=== PATIENT | female | born 2000 | race American Indian/Alaskan Native ===

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

== ENCOUNTER 2018-06-13 10:58 | Emergency (ER) | payer OTHER ==
--- NOTE | 2018-06-13 12:35 | ED PDOC ---
HPI: Fever Time Seen by Provider: 06/13/18 12:05 Past Medical History Reviewed: Historical Data, Nursing Documentation, Vital Signs Vital Signs: Last Vital Signs Temp 98.7 F 06/13/18 11:12 Pulse 114 H 06/13/18 11:12 Resp 20 06/13/18 11:12 BP 138/82 06/13/18 11:12 Pulse Ox 98 06/13/18 11:12 - Medical History PMH: Asthma Other PMH: Polycystic kidney disease; atrophic left kidney disease - Surgical History Surgical History: Tonsillectomy - Home Medications Home Medications: Ambulatory Orders Medication Instructions Recorded Levofloxacin [Levaquin] 750 mg PO DAILY 06/13/18 Phentermine HCl [Adipex-P] 37.5 mg PO DAILY 06/13/18 - Allergies Allergies/Adverse Reactions: Allergies Allergy/AdvReac Type Severity Reaction Status Date / Time No Known Allergies Allergy Verified 12/17/17 22:23 Review of Systems ROS Statement: Except As Marked, All Systems Reviewed And Found Negative ENT: Positive for: Throat Pain Musculoskeletal: Positive for: Other (flank pain) Physical Exam - Reviewed Nursing Documentation Reviewed: Yes Vital Signs Reviewed: Yes - Physical Exam Appears: Positive for: Non-toxic, No Acute Distress Head Exam: Positive for: ATRAUMATIC, NORMOCEPHALIC Skin: Positive for: Normal Color ENT: Positive for: TM Is/Are (non bulging; non erythematous ). Negative for: Tonsillar Exudate, Tonsillar Swelling Neck: Positive for: Normal, Painless ROM Cardiovascular/Chest: Positive for: Regular Rate, Rhythm. Negative for: Murmur Respiratory: Negative for: Respiratory Distress Gastrointestinal/Abdominal: Positive for: Normal Exam, Soft Back: Positive for: R CVA Tenderness. Negative for: Normal Inspection (tenderness to palpation to right flank) Lymphatic: Positive for: Normal Exam Neurologic/Psych: Positive for: Alert, Oriented - ECG O2 Sat by Pulse Oximetry: 98 (RA) Pulse Ox Interpretation: Normal Medical Decision Making Medical Decision Making: Time: 12:19 Plan: --CMP --urine --CBC with differential --Chest x-ray --Blood culture --urine culture --Urinalysis --Rapid strep --Monospot Scribe Attestation: Documented by Kentrell Riley, acting as a scribe for Priyanka Lane PA-C. Provider Scribe Attestation: All medical record entries made by the Scribe were at my direction and personally dictated by me. I have reviewed the chart and agree that the record accurately reflects my personal performance of the history, physical exam, medical decision making, and the department course for this patient. I have also personally directed, reviewed, and agree with the discharge instructions and disposition. Disposition - Disposition
--- NOTE | 2018-06-13 12:42 | ED PDOC ---
HPI: Influenza Time Seen by Provider: 06/13/18 12:05 Chief Complaint: Fever Chief Complaint (Provider): Fever History Per: Patient Exam Limitations: no limitations Symptoms include: fever, sore throat, cough. denies: vomiting, diarrhea Additional complaint(s):: Brittany Norman is a 18 year old female with a past medical history of polycystic kidney disease, atrophic left kidney disease, and asthma, who presents to the emergency department with persistent flank pain, fevers, and throat pain. Bin rubio states that x2 weeks ago she began having sore throat and right flank pain. She reports she was on vacation in [place] and went to the ED where she was diagnosed with a kidney infection and sore throat. Patient was given IV antibiotics and sent home with a Rx for Keflex, which she completed x3 days ago. Patient again states she has persistent throat pain, malaise, and right flank pain, prompting her to visit [facility] x2 days ago, where she was admitted. She was given IV Levaquin and discharged with Rx for Levaquin 750mg PO daily for x5days. Patient states she has not filled the Rx last night and after she was discharged last night she woke up drenched in sweat and a fever of 102. She reports she took Tylenol at 9am today and decided to come in to ED for persistent symptoms. Patient admits to have continued dysuria, intermittent cough with blood tinged sputum that improved over last couple of days. She denies to have any ear pain, nausea, vomiting, or diarrhea. PMD: no provider Past Medical History Reviewed: Historical Data, Nursing Documentation, Vital Signs Vital Signs: Last Vital Signs Temp 98.7 F 06/13/18 11:12 Pulse 114 H 06/13/18 11:12 Resp 20 06/13/18 11:12 BP 138/82 06/13/18 11:12 Pulse Ox 98 06/13/18 12:39 - Medical History PMH: Asthma Other PMH: Polycystic kidney disease; atrophic left kidney disease - Surgical History Surgical History: Tonsillectomy - Family History Family History: States: Unknown Family Hx - Home Medications Home Medications: Ambulatory Orders Medication Instructions Recorded Levofloxacin [Levaquin] 750 mg PO DAILY 06/13/18 Phentermine HCl [Adipex-P] 37.5 mg PO DAILY 06/13/18 - Allergies Allergies/Adverse Reactions: Allergies Allergy/AdvReac Type Severity Reaction Status Date / Time No Known Allergies Allergy Verified 12/17/17 22:23 Review of Systems ROS Statement: Except As Marked, All Systems Reviewed And Found Negative Constitutional: Positive for: Fever ENT: Positive for: Throat Pain. Negative for: Ear Pain Respiratory: Positive for: Cough, Sputum (mildly blooy ) Gastrointestinal: Negative for: Nausea, Vomiting, Abdominal Pain, Diarrhea Musculoskeletal: Positive for: Other (flank pain) Physical Exam - Reviewed Nursing Documentation Reviewed: Yes Vital Signs Reviewed: Yes - Physical Exam Appears: Positive for: Non-toxic, No Acute Distress Head Exam: Positive for: ATRAUMATIC, NORMOCEPHALIC Skin: Positive for: Normal Color ENT: Positive for: TM Is/Are (non bulging; non erythematous ), Pharyngeal Erythema. Negative for: Tonsillar Exudate, Tonsillar Swelling Neck: Positive for: Normal, Painless ROM, Supple Cardiovascular/Chest: Positive for: Regular Rate, Rhythm. Negative for: Murmur Respiratory: Positive for: Normal Breath Sounds. Negative for: Respiratory Distress Gastrointestinal/Abdominal: Positive for: Normal Exam, Soft. Negative for: Tenderness Back: Positive for: L CVA Tenderness, R CVA Tenderness. Negative for: Normal Inspection (tenderness to palpation of right flank) Lymphatic: Positive for: Normal Exam Neurologic/Psych: Positive for: Alert, Oriented Medical Decision Making Medical Decision Making: Time: 12:19 Plan: --CMP --Urine --CBC with differential --Chest x-ray --Blood culture --Urine culture --Urinalysis --Monospot --Rapid strep --CT of abd/pelvis with IV contrast Time 1256 Chest x-ray FINDINGS: LINES AND TUBES: None. LUNG AND PLEURA: The lungs are well inflated and clear. No pleural effusion or pneumothorax. HEART AND MEDIASTINUM: The heart is not enlarged. No aortic atherosclerotic calcification present. The hilar and mediastinal contours are within normal limits. SKELETAL STRUCTURES: The bony structures are within normal limits for the patient's age. VISUALIZED UPPER ABDOMEN: Normal. OTHER FINDINGS: None. IMPRESSION: No active pulmonary disease. 1604 Abd/Pelvis CT FINDINGS: LOWER THORAX: Unremarkable. LIVER: Unremarkable. No gross lesion or ductal dilatation. GALLBLADDER AND BILE DUCTS: Unremarkable. PANCREAS: Unremarkable. No gross lesion or ductal dilatation. SPLEEN: Unremarkable. ADRENALS: Unremarkable. No mass. KIDNEYS AND URETERS: Unremarkable right kidney. Atrophic/hypoplastic left kidney. There are at least 4 small rounded fluid density masses in the left kidney the largest of which measures 1.7 cm in diameter. This is unchanged from 12/17/2017. No renal calculus. No hydronephrosis. VASCULATURE: Unremarkable. No aortic aneurysm. No aortic atherosclerotic calcification or mural plaque present. BOWEL: Unremarkable. No obstruction. No gross mural thickening. APPENDIX: Normal appendix. PERITONEUM: Unremarkable. No free fluid. No free air. LYMPH NODES: Unremarkable. No enlarged lymph nodes. BLADDER: Unremarkable. REPRODUCTIVE: Normal uterus BONES: No acute fracture. OTHER FINDINGS: None. IMPRESSION: No evidence of renal abscess. Atrophic/hypoplastic left kidney with 4 small fluid density masses, likely cysts. These are unchanged from 12/17/2017. Otherwise unremarkable examination. Re-evaluated prior to d/c: Pain improved after Toradol. Pt advised that pain is likely radicular nerve pain from lumbar fracture and unrelated to kidney stones. She should f/u with her primary care doctor or orthopedist for further evaluation. Scribe Attestation: Documented by Kentrell Riley, acting as a scribe for Priyanka Lane PA-C. Provider Scribe Attestation: All medical record entries made by the Scribe were at my direction and personally dictated by me. I have reviewed the chart and agree that the record accurately reflects my personal performance of the history, physical exam, medical decision making, and the department course for this patient. I have also personally directed, reviewed, and agree with the discharge instructions and disposition. - Laboratory Results Result Diagrams: 06/13/18 13:00 06/13/18 13:00 - ECG O2 Sat by Pulse Oximetry: 98 (RA) Pulse Ox Interpretation: Normal Disposition - Clinical Impression Clinical Impression: Viral pharyngitis, Pyelonephritis - Disposition Referrals: Jimmy Jain MD [Staff Provider] - Disposition Time: 18:09 Condition: STABLE Additional Instructions: Continue course of Levaquin as prescribed previously. If you continue to have recurrent fevers and flank pain after the next day or so, return to ER for further evaluation. Take Ibuprofen and Tylenol for fevers and throat pain. Drink lots of fluids. Return to ER if you are unable to drink fluids. Instructions: Viral Pharyngitis (DC), Kidney Infection (DC) Forms: [facility] ([place]) Print Language: DIVEHI
--- NOTE | 2018-06-13 13:00 | RAD ---
Date of service: 06/13/2018 HISTORY: Shortness of breath COMPARISON: No prior. TECHNIQUE: Chest PA and lateral FINDINGS: LINES AND TUBES: None. LUNG AND PLEURA: The lungs are well inflated and clear. No pleural effusion or pneumothorax. HEART AND MEDIASTINUM: The heart is not enlarged. No aortic atherosclerotic calcification present. The hilar and mediastinal contours are within normal limits. SKELETAL STRUCTURES: The bony structures are within normal limits for the patient's age. VISUALIZED UPPER ABDOMEN: Normal. OTHER FINDINGS: None. IMPRESSION: No active pulmonary disease.
[2018-06-13 13:09] LABS: SQUAMOUS EPITHIAL 36 /hpf (0-5); URINE AMORPHOUS SEDIMENT RARE /ul (<OCC); URINE BACTERIA MOD (<OCC); URINE BILIRUBIN NEGATIVE (NEGATIVE); URINE BLOOD LARGE (NEGATIVE); URINE CLARITY CLOUDY (Clear); URINE COLOR YELLOW (YELLOW); URINE GLUCOSE (UA) NEG (NEGATIVE); URINE LEUKOCYTE ESTERASE MOD Leu/uL (Negative); URINE PROTEIN 30 mg/dL (NEGATIVE); URINE UROBILINOGEN 0.2-1.0 mg/dL (0.2-1.0)
[2018-06-13 13:27] LABS: BASO # 0.1 K/uL (0.0-0.2); BASO % 0.7 % (0.0-2.0); EOS # 0.1 K/uL (0.0-0.7); EOS % 0.7 % (0.0-4.0); HEMOGLOBIN 13.2 g/dL (12.0-16.0); LYMPH # 1.7 K/uL (1.0-4.3); LYMPH % 17.7 % (20.0-40.0); MEAN CORPUSCULAR HEMOGLOBIN 27.4 pg (27.0-31.0); MEAN CORPUSCULAR HGB CONC 32.6 g/dL (33.0-37.0); MEAN PLATELET VOLUME 9.1 fl (7.2-11.7); MONO # 1.1 K/uL (0.0-0.8); MONO % 11.8 % (0.0-10.0); NEUT # 6.5 K/uL (1.8-7.0); NEUT % 69.1 % (50.0-75.0); NRBC % 0.1 % (0.0-0.0); RBC 4.82 Mil/uL (3.80-5.20); RED CELL DISTRIBUTION WIDTH 14.4 % (11.5-14.5); WHITE BLOOD COUNT 9.5 K/uL (4.8-10.8)
[2018-06-13 13:49] LABS: ALB/GLOB RATIO 0.9 (1.0-2.1); ALBUMIN 3.8 g/dL (3.5-5.0); ALT/SGPT 34 U/L (9-52); AST/SGOT 27 U/L (14-36); BLOOD UREA NITROGEN 9 mg/dl (7-17); CALCIUM 9.4 mg/dL (8.4-10.2); GFR NON-AFRICAN AMERICAN > 60
[2018-06-13 13:50] VITALS: RESP 18
[2018-06-13] MEDS ORDERED: Sodium Chloride 0.9% 50 ML IV ONE (14:42)
[2018-06-13] MEDS ORDERED: Iohexol 300 100 ML IJ ONE (14:42)
--- NOTE | 2018-06-13 16:12 | CT ---
Date of service: 06/13/2018 PROCEDURE: CT Abdomen and Pelvis with contrast HISTORY: R/o renal abscess COMPARISON: 12/17/2017 TECHNIQUE: Contrast dose: 99 cc Omnipaque 3 Scott Radiation dose: Total exam DLP = 1134.1 mGy-cm. This CT exam was performed using one or more of the following dose reduction techniques: Automated exposure control, adjustment of the mA and/or kV according to patient size, and/or use of iterative reconstruction technique. FINDINGS: LOWER THORAX: Unremarkable. LIVER: Unremarkable. No gross lesion or ductal dilatation. GALLBLADDER AND BILE DUCTS: Unremarkable. PANCREAS: Unremarkable. No gross lesion or ductal dilatation. SPLEEN: Unremarkable. ADRENALS: Unremarkable. No mass. KIDNEYS AND URETERS: Unremarkable right kidney. Atrophic/hypoplastic left kidney. There are at least 4 small rounded fluid density masses in the left kidney the largest of which measures 1.7 cm in diameter. This is unchanged from 12/17/2017. No renal calculus. No hydronephrosis. VASCULATURE: Unremarkable. No aortic aneurysm. No aortic atherosclerotic calcification or mural plaque present. BOWEL: Unremarkable. No obstruction. No gross mural thickening. APPENDIX: Normal appendix. PERITONEUM: Unremarkable. No free fluid. No free air. LYMPH NODES: Unremarkable. No enlarged lymph nodes. BLADDER: Unremarkable. REPRODUCTIVE: Normal uterus BONES: No acute fracture. OTHER FINDINGS: None. IMPRESSION: No evidence of renal abscess. Atrophic/hypoplastic left kidney with 4 small fluid density masses, likely cysts. These are unchanged from 12/17/2017. Otherwise unremarkable examination.
[2018-06-13 18:01] VITALS: TEMP 98.6
[2018-06-13 18:25] VITALS: BP 134/71; PULSE 91
[2018-06-14 00:57] VITALS: O2SAT 98
== END 2018-06-13 18:20 | disposition home or self-care (01) ==
LOC: H.ER 10:58
DX: J02.9 Acute pharyngitis, unspecified (principal); N12 Tubulo-interstitial nephritis, not specified as acute or chronic; Q60.3 Renal hypoplasia, unilateral; M54.10 Radiculopathy, site unspecified
CPT/HCPCS: 71046; 74177; 80053; 81003; 81025; 85025; 86308; 87040; 87070; 87086; 87430; 99284; Q9967

== ENCOUNTER 2018-06-16 14:38 | Emergency (ER) | payer OTHER ==
--- NOTE | 2018-06-16 15:39 | ED PDOC ---
HPI: General Adult Time Seen by Provider: 06/16/18 15:31 Chief Complaint (Nursing): Fever Chief Complaint (Provider): Right Flank Pain, Sore Throat History Per: Patient History/Exam Limitations: no limitations Onset/Duration Of Symptoms: Days (x2 weeks) Current Symptoms Are (Timing): Still Present Additional Complaint(s): 18 year old female with hx of polycystic kidney disease presents to the ED for evaluation of persistent right flank pain and sore throat for the past two weeks. Patient was seen for these sx recently in this ED and after CT/labs, was diagnosed with pyelonephritis and sent home with Levaquin. She presents with persistent pain and symptoms. PMD: none provided Past Medical History Reviewed: Historical Data, Nursing Documentation, Vital Signs Vital Signs: Last Vital Signs Temp 99.5 F 06/16/18 14:51 Pulse 118 H 06/16/18 14:51 Resp 20 06/16/18 14:51 BP 126/83 06/16/18 14:51 Pulse Ox 100 06/16/18 14:51 - Medical History PMH: Asthma, Sexually Transmitted Disease (gential herpes, as per patient) Other PMH: polycystic kidney disease - Surgical History Surgical History: Tonsillectomy Other surgeries: left wrist ganglion cyst removed - Family History Family History: States: Unknown Family Hx - Social History Current smoker - smoking cessation education provided: No Alcohol: None Drugs: Denies - Home Medications Home Medications: Ambulatory Orders Medication Instructions Recorded Levofloxacin [Levaquin] 750 mg PO DAILY 06/13/18 Phentermine HCl [Adipex-P] 37.5 mg PO DAILY 06/13/18 Levofloxacin [Levaquin] 500 mg PO DAILY #10 tablet 06/16/18 Pseudoephedrine [Sudafed Tab] 60 mg PO Q6 PRN #24 tab 06/16/18 - Allergies Allergies/Adverse Reactions: Allergies Allergy/AdvReac Type Severity Reaction Status Date / Time pineapple Allergy SWELLING Verified 06/16/18 14:49 Review of Systems ROS Statement: Except As Marked, All Systems Reviewed And Found Negative ENT: Positive for: Throat Pain Musculoskeletal: Positive for: Other (right flank pain) Physical Exam - Reviewed Nursing Documentation Reviewed: Yes Vital Signs Reviewed: Yes - Physical Exam Appears: Positive for: No Acute Distress Head Exam: Positive for: ATRAUMATIC, NORMOCEPHALIC Skin: Positive for: Normal Color Eye Exam: Positive for: Normal appearance ENT: Positive for: Tonsillar Exudate. Negative for: Pharyngeal Erythema Neck: Positive for: Normal, Painless ROM, Supple Cardiovascular/Chest: Positive for: Regular Rate, Rhythm Respiratory: Positive for: Normal Breath Sounds. Negative for: Respiratory Distress Gastrointestinal/Abdominal: Positive for: Soft, Tenderness (right flank and RUQ) Back: Positive for: Normal Inspection Neurologic/Psych: Positive for: Alert, Oriented (x3). Negative for: Motor/Sensory Deficits - Laboratory Results Result Diagrams: 06/16/18 15:35 06/16/18 15:35 - ECG O2 Sat by Pulse Oximetry: 100 (RA) Pulse Ox Interpretation: Normal - Progress ED Course And Treament: rapid strep neg mono neg US abdomen: IMPRESSION: Atrophic left kidney. Four left renal for cysts, largest 1.8 cm. Mild hepatomegaly. No cholelithiasis or cholecystitis. Medical Decision Making Medical Decision Making: Time: 1520 Initial Impression: pyelonephritis Initial Plan: --Old test results reviewed. Throat and urine cultures negative. Will repeat old tests. --CMP --Lipase --CBC with differential --Urine culture --[place] swab --Rapid strep swab --Urinalysis --US abdomen 1535 Strep and [place] results are negative. Scribe Attestation: Documented by Kate Mulligan, acting as a scribe for Gaetano Zavala PA-C. Provider Scribe Attestation: All medical record entries made by the Scribe were at my direction and personally dictated by me. I have reviewed the chart and agree that the record accurately reflects my personal performance of the history, physical exam, medical decision making, and the department course for this patient. I have also personally directed, reviewed, and agree with the discharge instructions and disposition. Disposition - Clinical Impression Clinical Impression: Pyelonephritis, URI (upper respiratory infection) - Patient ED Disposition Is Patient to be Admitted: No - Disposition Referrals: Alee Hidns MD [Staff Provider] - Disposition: Routine/Home Disposition Time: 17:01 Condition: FAIR Prescriptions: Levofloxacin [Levaquin] 500 mg PO DAILY #10 tablet Pseudoephedrine [Sudafed Tab] 60 mg PO Q6 PRN #24 tab PRN Reason: Nasal Congestion Instructions: Kidney Infection, Viral Upper Respiratory Infection, Adult (DC) Forms: [employer] ([place]), [facility] ED School/Work Excuse
[2018-06-16 15:44] LABS: BASO # 0.1 K/uL (0.0-0.2); BASO % 0.6 % (0.0-2.0); EOS % 0.3 % (0.0-4.0); HEMOGLOBIN 14.2 g/dL (12.0-16.0); LYMPH % 17.9 % (20.0-40.0); MEAN CELL VOLUME 82.6 fl (81.0-99.0); MEAN CORPUSCULAR HEMOGLOBIN 27.2 pg (27.0-31.0); MEAN CORPUSCULAR HGB CONC 32.9 g/dL (33.0-37.0); MONO # 1.3 K/uL (0.0-0.8); MONO % 11.3 % (0.0-10.0); NEUT # 7.8 K/uL (1.8-7.0); NEUT % 69.9 % (50.0-75.0); NRBC % 0.2 % (0.0-0.0); RBC 5.21 Mil/uL (3.80-5.20); RED CELL DISTRIBUTION WIDTH 14.2 % (11.5-14.5); WHITE BLOOD COUNT 11.2 K/uL (4.8-10.8)
[2018-06-16 15:52] LABS: SQUAMOUS EPITHIAL 8 /hpf (0-5); URINE AMORPHOUS SEDIMENT RARE /ul (<OCC); URINE BACTERIA OCC (<OCC); URINE BILIRUBIN NEGATIVE (NEGATIVE); URINE BLOOD MODERATE (NEGATIVE); URINE CLARITY CLOUDY (Clear); URINE COLOR YELLOW (YELLOW); URINE GLUCOSE (UA) NEG (NEGATIVE); URINE LEUKOCYTE ESTERASE LARGE Leu/uL (Negative); URINE PROTEIN 30 mg/dL (NEGATIVE); URINE UROBILINOGEN 0.2-1.0 mg/dL (0.2-1.0)
[2018-06-16 16:15] LABS: ALB/GLOB RATIO 0.8 (1.0-2.1); ALBUMIN 3.9 g/dL (3.5-5.0); ALT/SGPT 21 U/L (9-52); AST/SGOT 45 U/L (14-36); BLOOD UREA NITROGEN 7 mg/dl (7-17); CALCIUM 9.5 mg/dL (8.4-10.2); GFR NON-AFRICAN AMERICAN > 60; LIPASE 67 U/L (23-300)
--- NOTE | 2018-06-16 16:57 | US ---
Date of service: 06/16/2018 HISTORY: ruq pain COMPARISON: None. TECHNIQUE: Sonographic evaluation of the abdomen. FINDINGS: LIVER: Measures 19.4 cm. Normal echogenicity of the liver parenchyma. No mass. No intrahepatic bile duct dilatation. GALLBLADDER: Unremarkable. No gallstones. COMMON BILE DUCT: Measures 2 mm. No stones. No dilatation. PANCREAS: Unremarkable as visualized. No mass. No ductal dilatation. RIGHT KIDNEY: Measures 15.1cm. Normal echogenicity. No calculus, mass, or hydronephrosis. LEFT KIDNEY: Atrophic left kidney. Four simple left renal cysts are identified the largest of which measures 1.8 cm in diameter. This corresponds to finding on CT examination of 06/13/2018. No hydronephrosis. No calculus. SPLEEN: Normal in size and contour. No mass. AORTA: No aneurysmal dilatation. IVC: Unremarkable. OTHER FINDINGS: None. IMPRESSION: Atrophic left kidney. Four left renal for cysts, largest 1.8 cm. Mild hepatomegaly. No cholelithiasis or cholecystitis.
[2018-06-16 17:09] VITALS: BP 124/83; PULSE 93; RESP 15; TEMP 98.1; O2SAT 98
== END 2018-06-16 17:19 | disposition home or self-care (01) ==
LOC: H.ER 14:38
DX: N12 Tubulo-interstitial nephritis, not specified as acute or chronic (principal); J06.9 Acute upper respiratory infection, unspecified; J45.909 Unspecified asthma, uncomplicated